=== PATIENT | female | born 1995 | race Caucasian/White ===

== ENCOUNTER 2018-07-11 21:19 | Emergency (ER) | payer MEDICAID ==
[2018-07-11] MEDS: HYDROCODONE/APAP (5/325) TAB PO ×2 (23:02→23:03)
[2018-07-11] MEDS: ONDANSETRON (ODT) 4 MG TAB ODT (23:03)
[2018-07-12] MEDS: LIDOCAINE 2% (MDV) 20 ML INJ INJ (00:12)
[2018-07-12] MEDS: LIDOCAINE 2%/EPI (MDV) 20ML INJ INJ (00:12)
== END 2018-07-12 01:19 | disposition home or self-care (01) ==
LOC: FTE 07-12 01:19
DX: S01.81XA Laceration without foreign body of other part of head, initial encounter (principal); Y04.8XXA Assault by other bodily force, initial encounter
CPT/HCPCS: 12054; 70450; 99284-25

== ENCOUNTER 2018-08-09 17:16 | Emergency (ER) | payer SELFPAY, MEDICAID | END 2018-08-09 19:41 | disposition left against medical advice (07) | LOC: FTE 17:16 | DX: Z53.21 Procedure and treatment not carried out due to patient leaving prior to being seen by health care provider (principal) ==

== ENCOUNTER 2019-02-27 16:22 | Emergency (ER) | payer MEDICAID ==
[2019-02-27] MEDS: HYDROCODONE/APAP (5/325) TAB PO (17:34)
[2019-02-27 17:42] LABS: ADD MAN DIFF? NO
[2019-02-27 17:44] LABS: WHITE BLOOD COUNT 7.7 10^3/ul (4.8-10.8)
[2019-02-27 17:44] LABS: BASOPHILS % 0.4 % (0.0-2.0); EOSINOPHILS # 0.1 10^3/ul (0.0-0.5); HEMATOCRIT 40.1 % (37.0-47.0); HEMOGLOBIN 13.9 g/dl (12.0-16.0); LYMPHOCYTES # 1.7 10^3/ul (0.8-2.9); LYMPHOCYTES % 22.2 % (15.0-51.0); MEAN CORPUSCULAR HEMOGLOBIN 30.5 pg (29.0-33.0); MEAN CORPUSCULAR HGB CONC 34.7 g/dl (32.0-37.0); MEAN CORPUSCULAR VOLUME 88.1 fl (82.0-101.0); MEAN PLATELET VOLUME 9.4 fl (7.4-10.4); MONOCYTE # 0.5 10^3/ul (0.3-0.9); NEUTROPHIL # 5.4 10^3/ul (1.6-7.5); NEUTROPHILS % 70.3 % (39.0-77.0); PLATELET COUNT 223 10^3/UL (140-415); RED BLOOD COUNT 4.55 10^6/ul (4.20-5.40); RED CELL DISTRIBUTION WIDTH 11.7 % (11.5-14.5)
[2019-02-27 17:50] LABS: ADD UMIC YES; UR ASCORBIC ACID NEGATIVE (NEGATIVE); UR BACTERIA FEW /HPF (NONE SEEN); UR BILIRUBIN (Dip) NEGATIVE (NEGATIVE); UR BLOOD (Dip) NEGATIVE (NEGATIVE); UR CLARITY SLIGHTLY CLOUDY (CLEAR); UR COLOR STRAW (YELLOW); UR GLUCOSE (Dip) NEGATIVE (NEGATIVE); UR KETONES (Dip) NEGATIVE (NEGATIVE); UR LEUKOCYTE ESTERASE (Dip) TRACE Leu/ul (NEGATIVE); UR NITRITE (Dip) NEGATIVE (NEGATIVE); UR RBC 1 /HPF (0-5); UR SPECIFIC GRAVITY (Dip) 1.008 (1.003-1.030); UR SQUAMOUS EPITHELIAL CELL FEW /HPF (FEW); UR TOTAL PROTEIN (Dip) NEGATIVE (NEGATIVE); UR UROBILINOGEN (Dip) NEGATIVE (NEGATIVE); UR WBC 1 /HPF (0-5)
[2019-02-27 18:11] LABS: ALANINE AMINOTRANSFERASE 16 IU/L (13-69); ALBUMIN 4.5 g/dl (3.3-4.9); ALBUMIN/GLOBULIN RATIO 1.36; ALKALINE PHOSPHATASE 105 IU/L (42-121); ANION GAP 10 (5-13); ASPARTATE AMINO TRANSFERASE 22 IU/L (15-46); BILIRUBIN,INDIRECT 0.3 mg/dl (0-1.1); BILIRUBIN,TOTAL 0.3 mg/dl (0.2-1.3); BLOOD UREA NITROGEN 14 mg/dl (7-20); CALCIUM 9.8 mg/dl (8.4-10.2); CARBON DIOXIDE 23 mmol/L (21-31); CHLORIDE 105 mmol/L (97-110); CREATININE 0.78 mg/dl (0.44-1.00); Estimated GFR > 60 mL/min (>60); GLUCOSE 94 mg/dl (70-220); POTASSIUM 3.7 mmol/L (3.5-5.1); SODIUM 138 mmol/L (135-144); TOTAL PROTEIN 7.8 g/dl (6.1-8.1)
== END 2019-02-27 18:35 | disposition home or self-care (01) ==
LOC: FTE 16:22
DX: R51 Headache (principal); F17.210 Nicotine dependence, cigarettes, uncomplicated
CPT/HCPCS: 70450; 80053; 81001; 81025; 85025; 99284-25

== ENCOUNTER 2019-04-20 01:28 | Emergency (ER) | payer MEDICAID ==
[2019-04-20] MEDS: DEXAMETHASONE 10 MG/ML 1 ML INJ IM (03:01)
[2019-04-20] MEDS: DIPHENHYDRAMINE 50 MG CAP PO (03:01)
[2019-04-20] MEDS: FAMOTIDINE 20 MG TAB PO (03:01)
== END 2019-04-20 04:17 | disposition home or self-care (01) ==
LOC: FTE 01:28
DX: S70.361A Insect bite (nonvenomous), right thigh, initial encounter (principal); F17.210 Nicotine dependence, cigarettes, uncomplicated; W57.XXXA Bitten or stung by nonvenomous insect and other nonvenomous arthropods, initial encounter; Y92.9 Unspecified place or not applicable
CPT/HCPCS: 96372; 99284-25